=== PATIENT | female | born 1985 | race Caucasian/White ===

== ENCOUNTER 2017-08-15 08:27 | Emergency (ER) | payer OTHER ==
[2017-08-15] MEDS ORDERED: Ondansetron ODT 4 MG TAB ONE (08:52)
[2017-08-15] MEDS ORDERED: Acetaminophen 500 MG TAB ONE (08:52)
--- NOTE | 2017-08-15 09:32 | CT ---
CT BRAIN NONCONTRAST: HISTORY: A 32-year-old female status post acute head trauma from fall. FINDINGS: There is no midline shift or any other mass effect. There is no evidence of acute intracranial hemor rhage, large cortical infarct, obstructive hydrocephalus, or extraaxial fluid collection. The calvar ium is intact. IMPRESSION: No acute intracranial findings. jn [] POS: [facility]
== END 2017-08-15 09:45 | disposition home or self-care (01) ==
LOC: SCSER 08:27
DX: S09.90XA Unspecified injury of head, initial encounter (principal); F90.9 Attention-deficit hyperactivity disorder, unspecified type; Z79.899 Other long term (current) drug therapy; W17.89XA Other fall from one level to another, initial encounter
CPT/HCPCS: 70450; Q0162

== ENCOUNTER 2018-01-24 12:11 | Emergency (ER) | payer OTHER ==
[2018-01-24] MEDS ORDERED: Ondansetron HCl/PF 4 MG/2 ML Vial ONE (14:09)
[2018-01-24] MEDS ORDERED: Morphine 4 MG/ML VIAL ONE (14:09)
[2018-01-24 14:21] LABS: Bilirubin Negative (Negative); Blood, Urine Negative (Negative); Clarity CLOUDY (Clear); Glucose, Urine (Dipstick) Negative (Negative); Leukocyte Negative (Negative); Nitrite Negative (Negative); Protein, Urine (Dipstick) Negative (Neg-Trace); Specific Gravity, Urine 1.006 (1.002-1.036); Urobilinogen 0.2 mg/dL (0.2-1.0)
[2018-01-24 14:27] LABS: Pregnancy Test - Urine (BHCG) Negative (Negative); Pregu Control Background? CLEAR/WHITE (CLR/WHITE); Pregu Control Bar Appear? YES (CONTROL BAR); Specific Gravity 1.006 (1.002-1.036)
[2018-01-24 14:30] LABS: #Eosinphils 0.2 thou/uL (0.0-0.7); #Lymphocytes 1.4 thou/uL (1.20-3.40); #Monocytes 0.4 thou/uL (0.11-0.59); #Neutrophils 4.2 thou/uL (1.40-6.50); %Basophils 0.4 % (0.0-1.0); %Eosinophils 3.5 % (0.0-10.0); %Lymphocytes 23.1 % (21.0-51.0); %Monocytes 5.9 % (0.0-10.0); %Neutrophils 67.1 % (42.0-75.0); Mean Corpuscular HGB CONC 34.4 g/dL (32.0-36.0); Mean Corpuscular Volume 84.5 fL (78.0-98.0); Mean Platelet Volume 7.7 fL (7.4-10.4); Platelet Count 229 thou/uL (130-400); RBC Distribution Width 12.6 % (11.5-14.5); Red Blood Cell (RBC) Count 4.13 mill/uL (4.20-5.40); White Blood Cell (WBC) Count 6.2 thou/uL (4.8-10.8)
[2018-01-24 14:44] LABS: Calcium 9.6 mg/dL (7.8-10.44)
[2018-01-24 14:49] LABS: ALT (SGPT) 24 U/L (8-55); AST (SGOT) 15 U/L (5-34); Albumin 4.2 g/dL (3.5-5.0); Alkaline Phosphatase 69 U/L (40-150); Anion Gap 10 mmol/L (10-20); BUN (Urea Nitrogen) 10 mg/dL (7.0-18.7); Bilirubin, Total 0.5 mg/dL (0.2-1.2); Calc. Creatinine Clearance 0 mL/min (70-130); Carbon Dioxide 28 mmol/L (22-29); Chloride 102 mmol/L (98-107); Estimated GFR-MDRD 89; Glucose 93 mg/dL (70-105); Lipase 40 U/L (8-78); Potassium 4.2 mmol/L (3.5-5.1); Protein, Total 7.2 g/dL (6.0-8.3); Sodium 136 mmol/L (136-145)
--- NOTE | 2018-01-24 15:26 | RAD ---
PORTABLE UPRIGHT FRONTAL CHEST RADIOGRAPH: 01/24/2018 HISTORY: Left-sided pain. COMPARISON: None. FINDINGS: There is no pneumothorax, pleural fluid, focal consolidation, or alveolar edema. Heart and mediastin al contours are unremarkable. Osseous structures appear unremarkable as well. IMPRESSION: No acute findings. POS: [facility]
--- NOTE | 2018-01-24 15:44 | RAD ---
LEFT SHOULDER 3 VIEWS: HISTORY: Trauma, left-sided shoulder pain. FINDINGS: No acute fracture or dislocation is seen. POS: [facility]
--- NOTE | 2018-01-24 16:35 | CT ---
CT ABDOMEN AND PELVIS WITH CONTRAST: HISTORY: Trauma. Fall from a horse. COMPARISON: None. FINDINGS: There is mild atelectasis in the left lung base. Nondisplaced left-sided rib fractures are present, incompletely evaluated with abdomen and pelvis CT. This follows at least the left 8th and 7th ribs, possibly more. No basilar pneumothorax is appreciated. No right-sided rib fracture is appreciated. There is visualized surgical scar of the anterior abdominal wall. There are no dilated loops of large or small. No mesenteric hematoma is appreciated. Small splenule enters into the splenic hilum. There is reservoir effect of the extrahepatic biliary system. There is a hypodensity in hepatic segment 8, peripherally, which does abut the capsules. The small periph eral hyperenhancement may reflect hemangioma, less likely hepatic laceration. There is subtle abnorm al low density along the right posterior lobe of the liver, segments 6 and 7. This may be artifactua l versus a liver laceration. There is no perihepatic blood. The appendix is visualized and is normal. Aortic contour is nonaneurysmal. The spleen is without ac [place] injury. The kidneys are unremarkable. The SI joints are unremarkable. The obturator rings are intact. Within the proximal right rectus abdominus muscle is a cylindrical shaped radio opacity, measuring 2 mm x 1 cm, just beneath the superficial fascia of the muscle, series 2, image 21. IMPRESSION: 1. Incompletely evaluated left sided rib fractures. There is a small, underlying left pleural effus ion. 2. Abnormal hypodensity along the hepatic segments 6 and 7, posteriorly. This may be artifactual ve rsus the possibility of a hepatic laceration. There is no perihepatic hemorrhage or fluid. 3. Possible hemangioma, hepatic segment 8, versus, less likely, a small laceration. Again, this is near the dome of the liver, and there is some motion artifact. 4. No other abnormality in the abdomen or pelvis. 5. [place] effect of the common bile duct from prior cholecystectomy. 6. Cylindrical, 2 x 10 mm x 1 cm radio opacity in the superficial soft tissues of the anterior abdom en, the craniad most fibers of the rectus abdominus muscle on the right. 7. Soft tissue contusion over the right thigh. ER physician was notified of the findings by telephone at 3:24 p.m. CODE CR POS: [facility]
== END 2018-01-24 16:10 | disposition home or self-care (01) ==
LOC: ERS 12:11
DX: S36.114A Minor laceration of liver, initial encounter (principal); S22.32XA Fracture of one rib, left side, initial encounter for closed fracture; V80.010A Animal-rider injured by fall from or being thrown from horse in noncollision accident, initial encounter
CPT/HCPCS: 71045; 74177; 80053; 81003; 81025; 83690; 85025; 96374; 96375; J2270; J2405

== ENCOUNTER 2019-09-25 00:43 | Emergency (ER) | payer OTHER, SELFPAY ==
[2019-09-25] MEDS ORDERED: diphenhydrAMINE 50 MG/ML VIAL ONE (00:58)
[2019-09-25] MEDS ORDERED: methylPREDNISolone Sod Succ/PF 125 MG/2 ML VIAL ONE (00:58)
[2019-09-25] MEDS ORDERED: Famotidine/PF 20 mg/2ml Vial ONE (00:58)
== END 2019-09-25 04:03 | disposition home or self-care (01) ==
LOC: ERS 00:43
DX: T78.09XA Anaphylactic reaction due to other food products, initial encounter (principal); Z79.899 Other long term (current) drug therapy
CPT/HCPCS: 96361; 96374; 96375; J1200; J2930; S0028

== ENCOUNTER 2021-12-25 14:35 | Emergency (ER) | payer OTHER, SELFPAY ==
[2021-12-25 15:09] LABS: #Eosinphils 0.2 thou/uL (0.0-0.7); #Monocytes 0.4 thou/uL (0.11-0.59); #Neutrophils 3.7 thou/uL (1.40-6.50); %Basophils 0.5 % (0.0-1.0); %Eosinophils 3.5 % (0.0-10.0); %Lymphocytes 31.3 % (21.0-51.0); %Monocytes 5.5 % (0.0-10.0); %Neutrophils 59.1 % (42.0-75.0); Hemoglobin 11.2 g/dL (12.0-16.0); Mean Corpuscular HGB CONC 31.3 g/dL (32.0-36.0); Mean Corpuscular Hemoglobin 25.6 pg (27.0-31.0); Mean Corpuscular Volume 81.6 fL (78.0-98.0); Mean Platelet Volume 9.6 fL (7.4-10.4); Platelet Count 241 thou/uL (130-400); RBC Distribution Width 15.4 % (11.5-14.5); Red Blood Cell (RBC) Count 4.36 mill/uL (4.20-5.40); White Blood Cell (WBC) Count 6.3 thou/uL (4.8-10.8)
[2021-12-25 15:34] LABS: ALT (SGPT) 19 U/L (8-55); AST (SGOT) 18 U/L (5-34); Albumin 4.1 g/dL (3.5-5.0); Alkaline Phosphatase 64 U/L (40-110); Anion Gap 12 mmol/L (10-20); BUN (Urea Nitrogen) 10 mg/dL (7.0-18.7); Bilirubin, Total 0.6 mg/dL (0.2-1.2); Calc. Creatinine Clearance 0 mL/min (70-130); Calcium 9.2 mg/dL (7.8-10.44); Carbon Dioxide 25 mmol/L (22-29); Chloride 104 mmol/L (98-107); Estimated GFR 93; Globulin 3.6 g/dL (2.4-3.5); Glucose 98 mg/dL (70-105); Lipase 52 U/L (8-78); Protein, Total 7.7 g/dL (6.0-8.3); Sodium 137 mmol/L (136-145)
[2021-12-25] MEDS ORDERED: Ketorolac Tromethamine 30 MG/ML VIAL ONE (17:20)
== END 2021-12-25 17:55 | disposition home or self-care (01) ==
LOC: ERS 14:35
DX: R07.89 Other chest pain (principal)
CPT/HCPCS: 36415; 71045; 80053; 83690; 84484; 85025; 93005; 94760; 96374; J1885

== ENCOUNTER 2022-09-28 13:29 | Emergency (ER) | payer OTHER, SELFPAY | END 2022-09-28 17:55 | disposition home or self-care (01) | LOC: ERS 13:29 | DX: S70.01XA Contusion of right hip, initial encounter (principal); W19.XXXA Unspecified fall, initial encounter | CPT/HCPCS: 72170 ==